=== PATIENT | male | born 2000 | race Caucasian/White ===

== ENCOUNTER 2020-11-12 13:12 | Emergency (ER) | payer OTHER, SELFPAY ==
[2020-11-12 16:02] VITALS: BP 00/0; PULSE 0; RESP 0; TEMP -17.7; TEMP 0
== END 2020-11-12 16:03 | disposition left against medical advice (07) ==
LOC: UTC 13:16
PROVIDERS: Emergency Provider Nurse Practitioner Family; PCP Nurse Practitioner Family
DX: Z53.21 Procedure and treatment not carried out due to patient leaving prior to being seen by health care provider (principal)
CPT/HCPCS: 99202; G0463

== ENCOUNTER 2021-08-10 18:25 | Emergency (ER) | payer MEDICAID, SELFPAY ==
[2021-08-10 19:18] VITALS: BP 114/72; PULSE 114; RESP 20; TEMP 37.1; O2SAT 96; BMI 29.6
--- NOTE | 2021-08-10 19:34 | HMH.EDUTC ---
[facility] [place] Disposition Clinical Impression: UTI (urinary tract infection) Qualifiers: Urinary tract infection type: site unspecified Hematuria presence: with hematuria Qualified Code(s): N39.0 - Urinary tract infection, site not specified Disposition: Home, Self-Care Condition on Discharge: Good Instructions: DI for Urinary Tract Infection (UTI) Additional Instructions: Drink plenty of water. Take tylenol or ibuprofen for pain or fever. Take the medications as directed. Follow up with your regular doctor. GO TO THE ER FOR ANY WORSENING SYMPTOMS Prescriptions: Ciprofloxacin HCl [Cipro 500mg Tab] 500 mg PO BID 10 Days #20 tab Transmission Status: Received by [facility] #[id number] Referrals: Braulio Delaney [Primary Care Provider] - Forms: Work/School Release Time of Disposition: 19:54 Medical Decision Making - Medical Records Medical records reviewed: No: I reviewed the patient's medical records. - Mehrdad Inquiry Pt receiving controlled substance: No Vital Signs: 08/10/21 19:18 08/10/21 20:05 Temperature 98.7 F 98.7 F Temperature Source Oral Pulse Rate 98 H Pulse Rate [Left Radial] 114 H Respiratory Rate 20 20 Blood Pressure 114/72 Blood Pressure [Right Arm] 114/72 Blood Pressure Mean [Right Arm] 86 02 Sat by Pulse Oximetry 96 - Lab Data Lab results reviewed: Yes: I reviewed the patient's lab results. Lab Results 08/10/21 19:42: Urine Color Dark yellow, Urine Appearance Cloudy, Urine pH 6.0, Ur Specific [place] 1.025, Urine Protein 3+, Urine Glucose (UA) Negative, Urine Ketones Trace, Urine Blood 3+, Urine Nitrate Negative, Urine Bilirubin 1+ A, Urine Urobilinogen 4, Ur Leukocyte Esterase 3+ A Orders (Tests/Meds): ORDERS Category Date Time Status Urine Culture Stat Micro 08/10/21 19:05 Results [facility] [place] HPI - General Stated complaint: problem with kidneys Time Seen by Provider: 08/10/21 19:35 Mode of Arrival: Ambulatory Source of Information: Patient Limitations: No Limitations Description of Symptoms (Recalled from Triage Doc. by RN): passed kideny stone last week, blood in urie previously, none at this time. painful urination, continous back pain, foul smelling urine HEENT Symptoms (Recalled from RN notes): No Resp Symptoms (Recalled from RN notes): No Skin Symptoms (Recalled from RN notes): No MS Symptoms (Recalled from RN notes): No Functional Status (Recalled from RN notes): wnl - History of Present Illness Provider Complaint: He states that he passed a kidney stone around 5 days ago. He was having low back pain before but then his symptoms got better. But, over the past 2 days she has had worsening dysuria and urinary frequency. He states his urine has became dark and foul smelling. - Related Data Previous Rx's Medication Instructions Recorded fafbolivvrdcgjp-vsmufbtnrpuwzha-HX 5 ml PO Q4-6H PRN #200 ml 03/25/19 2 mg-30 mg-10 mg/5 mL oral syrup Ciprofloxacin HCl [Cipro 500mg 500 mg PO BID 10 Days #20 tab 08/10/21 Tab] Allergies Allergy/AdvReac Type Severity Reaction Status Date / Time No Known Allergies Allergy Unverified 03/25/19 13:32 - Worker's Comp Is this a Worker's Comp case?: No [facility] History - Hepatitis A Screen Attestation statement:: This patient has been screened for Hepatitis A risk factors. I have reviewed the patient's past medical history: Yes - Social History Smoking Status: Current every day smoker (Vaping) Tobacco Type: e-cigarettes Occupational Status: employed ROS Obtained: Yes All systems reviewed & no additional complaints - Constitutional Constitutional: Reports chills, Denies fever(s), Denies poor appetite, Denies malaise - Eyes Eyes: Denies eye discharge - ENT Ears, Nose, Mouth, and Throat: Denies sore throat - Gastrointestinal Gastrointestingal: Reports: nausea. Denies: abdominal pain, cramping, diarrhea, vomiting - Genitourinary Male Genitourinary: Reports as per HPI -
[2021-08-10 19:52] LABS: Apearance,Urine Cloudy (Clear); Color,Urine Dark Yellow (Yellow); Specific Gravity, Urine 1.025 (1.005-1.030)
[2021-08-10 19:53] LABS: Bilirubin,Urine 1+ (Negative); Blood, Urine 3+ (Negative); Glucose,Urine (UA) Negative (Negative); Ketones,Urine TRACE (Negative); Protein,Urine 3+ (Negative); Urobilinogen,Urine 4 EU/dl (0.2)
[2021-08-10 19:54] LABS: UTC Leukocyte Esterase,Urine 3+ (Negative); UTC Nitrate,Urine Negative (Negative)
[2021-08-10 20:05] VITALS: BP 114/72; PULSE 98; RESP 20; TEMP 37.1
== END 2021-08-10 20:06 | disposition home or self-care (01) ==
PROVIDERS: Emergency Provider Nurse Practitioner Family; PCP Family Medicine
DX: N39.0 Urinary tract infection, site not specified (principal); R82.998 Other abnormal findings in urine; M54.50 Low back pain, unspecified; F17.290 Nicotine dependence, other tobacco product, uncomplicated; Z87.442 Personal history of urinary calculi
CPT/HCPCS: 81003; 87086; 87088; 87186; 99213; G0463

== ENCOUNTER 2021-11-06 14:43 | Emergency (ER) | payer MEDICAID, SELFPAY ==
[2021-11-06 15:03] VITALS: BP 142/93; PULSE 101; RESP 16; TEMP 36.8; O2SAT 101; BMI 30.4
--- NOTE | 2021-11-06 15:07 | HMH.EDUTC ---
[facility] [place]position Clinical Impression: UTI (urinary tract infection) Qualifiers: Urinary tract infection type: site unspecified Hematuria presence: with hematuria Qualified Code(s): N39.0 - Urinary tract infection, site not specified Disposition: Home, Self-Care Condition on Discharge: Good Instructions: Urine Culture, DI for Urinary Tract Infection (UTI) Additional Instructions: Drink plenty of fluids. Take tylenol or ibuprofen for pain or fever. Take the medications as directed. Follow up with your regular doctor. GO TO THE ER FOR ANY WORSENING SYMPTOMS We will culture the urine. That will tell what bacteria is causing your infection and which antibiotics will treat it best. Sometimes the first antibiotic we prescribe turns out to not work against different bacteria. So, make sure you follow up within 3 days if you are not getting better. Prescriptions: Ciprofloxacin HCl [Cipro 500mg Tab] 500 mg PO BID 10 Days #20 tab Transmission Status: Received by [facility] Referrals: Braulio Delaney [Primary Care Provider] - Forms: Work/School Release Time of Disposition: 15:24 Medical Decision Making - Medical Records Medical records reviewed: No: I reviewed the patient's medical records. - Mehrdad Inquiry Pt receiving controlled substance: No Vital Signs: 11/06/21 15:03 11/06/21 15:28 Temperature 98.3 F 98.3 F Temperature Source Oral Pulse Rate 101 H Pulse Rate [Left] 101 H Respiratory Rate 16 16 Blood Pressure 142/93 H Blood Pressure [Right Arm] 142/93 H Blood Pressure Mean [Right Arm] 109 02 Sat by Pulse Oximetry 101 H - Lab Data Lab results reviewed: Yes: I reviewed the patient's lab results. Lab Results 11/06/21 15:07: Urine Color Dark yellow, Urine Appearance Clear, Urine pH 6.5, Ur Specific [place] >= 1.030, Urine Protein Negative, Urine Glucose (UA) Negative, Urine Ketones Negative, Urine Blood Trace, Urine Nitrate Negative, Urine Bilirubin Negative, Urine Urobilinogen 2, Ur Leukocyte Esterase Negative [facility] [place] HPI - General Stated complaint: Possible kidney infection Time Seen by Provider: 11/06/21 15:07 - History of Present Illness Provider Complaint: He states that for the past 2 days he has had urinary frequency, dysuria, and mild low back pain. He has a history of getting UTI's at times. That is what he believes is happening right now. He denies any fever or chills. - Related Data Previous Rx's Medication Instructions Recorded bonqhatxziairhj-oamkaquxcxqnqop-JK 5 ml PO Q4-6H PRN #200 ml 03/25/19 2 mg-30 mg-10 mg/5 mL oral syrup Ciprofloxacin HCl [Cipro 500mg 500 mg PO BID 10 Days #20 tab 08/10/21 Tab] Ciprofloxacin HCl [Cipro 500mg 500 mg PO BID 10 Days #20 tab 11/06/21 Tab] Allergies Allergy/AdvReac Type Severity Reaction Status Date / Time No Known Allergies Allergy Verified 11/06/21 15:10 [facility] History - Hepatitis A Screen Attestation statement:: This patient has been screened for Hepatitis A risk factors. I have reviewed the patient's past medical history: Yes - Social History Smoking Status: Current every day smoker (Vaping) Tobacco Type: e-cigarettes Occupational Status: employed ROS Obtained: Yes All systems reviewed & no additional complaints - Constitutional Constitutional: Reports as per HPI - Eyes Eyes: Denies eye discharge - ENT Ears, Nose, Mouth, and Throat: Denies sore throat - Cardiovascular Cardiovascular: Denies chest pain - Respiratory Respiratory: Denies chest congestion, Denies cough - Gastrointestinal Gastrointestingal: Reports: nausea. Denies: abdominal pain, change in stool character, vomiting Physical Exam - General General appearance: alert, in no apparent distress - Head Head exam: atraumatic, normocephalic, normal inspection - Eye Eye exam: Present: normal appearance, PERRL, EOMI - ENT ENT exam: Present: normal exam, normal oropharynx, mucous membranes mois
[2021-11-06 15:27] LABS: Apearance,Urine Clear (Clear); Bilirubin,Urine Negative (Negative); Blood, Urine Trace (Negative); Color,Urine Dark Yellow (Yellow); Glucose,Urine (UA) Negative (Negative); Ketones,Urine Negative (Negative); PH,Urine 6.5 (5.0-8.5); Protein,Urine Negative (Negative); Specific Gravity, Urine >= 1.030 (1.005-1.030); UTC Leukocyte Esterase,Urine Negative (Negative); UTC Nitrate,Urine Negative (Negative); Urobilinogen,Urine 2 EU/dl (0.2)
[2021-11-06 15:28] VITALS: BP 142/93; PULSE 101; RESP 16; TEMP 36.8
== END 2021-11-06 15:28 | disposition home or self-care (01) ==
PROVIDERS: Emergency Provider Nurse Practitioner Family; PCP Family Medicine
DX: N39.0 Urinary tract infection, site not specified (principal); M54.50 Low back pain, unspecified; F17.290 Nicotine dependence, other tobacco product, uncomplicated; Z87.440 Personal history of urinary (tract) infections
CPT/HCPCS: 81003; 87086; 87088; 87186; 99213; G0463

== ENCOUNTER 2022-12-04 19:41 | Emergency (ER) | payer MEDICAID, SELFPAY ==
--- NOTE | 2022-12-04 19:55 | EXP.UTC ---
Discharge Plan Disposition Patient Disposition: Home, Self-Care Condition: Good Prescriptions Prescriptions: New doxycycline hyclate [doxycycline hyclate] 100 mg capsule 100 mg PO Q12 10 Days Qty: 20 0RF methylprednisolone 4 mg Tablets,Dose Pack 4 mg PO DIRECTED Qty: 21 0RF ondansetron 4 mg Tablet,Disintegrating 4 mg PO Q8H PRN (Reason: Nausea) Qty: 12 0RF No Action buprenorphine-naloxone 8-2 mg tablet, sublingual 1 tab SUBLINGUAL DAILY Referrals Follow up/Referrals: Braulio Delaney [Primary Care Provider] - See instructions Activity Restrictions/Add. Instructions Additional Instructions/Restrictions: Drink plenty of fluids. Take tylenol or ibuprofen for pain or fever. Take the medications as directed. Follow up with your regular doctor. GO TO THE ER FOR ANY WORSENING SYMPTOMS Follow up with your primary care physician if you're not feeling better in 3 days. Clinical Impressions Clinical Impression: Viral syndrome, Rash Instructions Patient Instructions: DI for Viral Syndrome Discharge ED Provider: Jagjit Burns [facility] General Stated complaint: rash nausea dizzy Time Seen by Provider: 12/04/22 19:55 History of Present Illness Provider Complaint: She states that for the past 2 days he has had sinus congestion, scratchy sore throat and felt bad. He also has a rash on back. 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 Social History Smoking Status: Current every day smoker (Vaping) tobacco type: e-cigarettes alcohol intake: never current occupational status: employed Travel in the last 8 weeks: None ROS Obtained: Yes All systems reviewed & no additional complaints except as documented Constitutional Constitutional: Reports poor appetite Eyes Eyes: Reports system reviewed and no additional complaints, except as documented ENT Ears, Nose, Mouth, and Throat: Reports as per HPI Cardiovascular Cardiovascular: Reports system reviewed and no additional complaints, except as documented and Denies chest pain Respiratory Respiratory: Denies shortness of breath, Reports chest congestion, Reports cough, Denies stridor and Denies wheezing Gastrointestinal Gastrointestingal: Reports system reviewed and no additional complaints, except as documented; Denies abdominal pain, diarrhea or vomiting Musculoskeletal Musculoskeletal: Reports system reviewed and no additional complaints, except as documented and Denies arthralgias Integumentary/Breasts Skin/Breast: Reports as per HPI and Reports rash Neurologic Neurologic: Denies paresthesias Allergic/Immunologic Allergic/Immunologic: Denies wheezing Physical Exam General General appearance: alert and in no apparent distress Eye Eye exam: Present normal appearance, PERRL and EOMI ENT ENT exam: Present mucous membranes moist and normal external ear exam Expanded ENT Exam External ear exam: Present normal external inspection TM/Canal exam: Bilateral TM: erythema and bulging Nose exam: Absent sinus tenderness Nasal speculum exam: Bilateral: normal Mouth exam: Present normal external inspection; Absent drooling Teeth exam: Present normal inspection Throat exam: Present tonsillar erythema an
[2022-12-04 20:00] VITALS: BP 145/88; PULSE 125; RESP 18; TEMP 36.8; O2SAT 97; BMI 24.3
[2022-12-04 20:31] VITALS: BP 145/88; PULSE 125; RESP 18; TEMP 36.8; O2SAT 97
== END 2022-12-04 20:31 | disposition home or self-care (01) ==
PROVIDERS: Emergency Provider Nurse Practitioner Family; PCP Family Medicine
DX: J02.9 Acute pharyngitis, unspecified (principal); R21 Rash and other nonspecific skin eruption; B34.9 Viral infection, unspecified; F17.290 Nicotine dependence, other tobacco product, uncomplicated
CPT/HCPCS: 99212; 99214; G0463